=== PATIENT | female | born 1975 | race Caucasian/White ===

== ENCOUNTER 2017-09-25 16:26 | Emergency (ER) | payer SELFPAY ==
[2017-09-25 16:48] VITALS: BP 113/75
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
--- NOTE | 2017-09-25 18:36 | CT ---
CT cervical spine Technique: Multiple axial sections were obtained from above C1 inferiorly to the bottom of C7. Reconstructed sagittal and coronal images were reviewed. Findings: Several air cysts are seen within the C4 and C5 vertebral bodies which are incidental. Very slight calcification is seen within the anterior annulus at C5-6 and C6-7 which is incidental. Very slight scattered degenerative apophyseal change is seen. Vertebral body heights and disc spaces are preserved. Mastoid sinuses and middle ear cavities that are seen appear clear. Posterior skull base is intact. Vertebral bodies and posterior arches are intact with no fracture seen. Small amount of epidural air is seen posterior to C3 compatible with annular rupture from vacuum disc phenomena at C2-3. No bony central or bony neural foraminal stenosis is seen. No abnormal subluxation is seen on the reconstructed sagittal images. Impression: 1. Slight degenerative change. 2. No acute fracture or abnormal subluxation is seen. Diagnostic code #2
--- NOTE | 2017-09-25 18:38 | CT ---
Head CT Technique: Multiple axial sections through the brain were obtained. Intravenous contrast was not utilized. Comparison: No previous intracranial imaging. Findings: Soft tissue fullness is seen within the foramen magnum suspicious for Arnold-Chiari 1 malformation. Ventricles along with basal cisterns and sulci over the convexities are within normal limits. Slightly prominent cisterna magna is seen which is a normal variant. No abnormal parenchymal densities are seen. No evidence of intracranial hemorrhage. No midline shift or mass effect is seen. Bone window settings were reviewed which shows the visualized sinuses to appear clear. No acute calvarial abnormality is seen. Impression: 1. Possible Arnold-Chiari 1 malformation. MRI would be needed to confirm if clinically needed. 2. Incidental prominent cisterna magna as a normal variant. 3. No acute intracranial abnormality is identified. Diagnostic code #2
== END 2017-09-25 20:00 | disposition home or self-care (01) ==
LOC: JD.ED 16:26
DX: S16.1XXA Strain of muscle, fascia and tendon at neck level, initial encounter (principal); S09.90XA Unspecified injury of head, initial encounter; F17.210 Nicotine dependence, cigarettes, uncomplicated; Z91.030 Bee allergy status; W22.8XXA Striking against or struck by other objects, initial encounter
CPT/HCPCS: 70450; 70450-26; 72125; 72125-26; 99283; 99284-25

== ENCOUNTER 2018-12-01 19:07 | Emergency (ER) | payer SELFPAY ==
--- NOTE | 2018-12-01 20:03 | EDM.PDOC ---
ED HPI GENERAL MEDICAL PROBLEM - General Chief Complaint: Cardiovascular Problem Stated Complaint: RAPID HEART BEAT CHEST PAIN Time Seen by Provider: 12/01/18 19:41 Source of Information: Reports: Patient, RN Notes Reviewed History Limitations: Reports: No Limitations - History of Present Illness INITIAL COMMENTS - FREE TEXT/NARRATIVE: The patient states that she woke up this morning around 10:00 feeling well, but a few minutes later, developed the sensation that her heart was racing. She states that she has experienced symptoms of tachycardia, typically about 3 times a month, but worse in the summer, since about 1995. Prior workups have revealed only "tachycardia". She states that she was previously on Cardizem, but didn't like the side effects, therefore she discontinued it. She is not currently on any medication for it. She states that she went back to bed, which usually takes care of the problem, but when she woke after a nap, the tachycardia was still present. She states that it persisted all day, until around 16:30 or 17:00, then resolved, but it restarted again around 17:50. It again resolved en route to the ED. When the patient has the tachycardia, she also feels lightheaded, hot, with decreased vision, dyspnea, nausea sometimes, tingling of her hands and fingers, neck tightness with difficulty swallowing, and the sensation that she is walking on rubber legs. She felt all of those symptoms today, along with central chest tightness, which she does not usually feel. Now here in the ED, she feels back to normal, with the exception of the continued chest tightness. It is noted, however, that her oxygen saturation is 100% on room air. The patient states that she does not drink any caffeinated beverages or energy drinks. The patient's PCP is Dr. Jaziel Mcarthur. Sternum Pain Score (Numeric/FACES): 6 - Related Data Allergies Allergy/AdvReac Type Severity Reaction Status Date / Time beeswax Allergy Airway Verified 12/01/18 19:13 Tightness Home Meds: Home Meds . 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 Neurological History: Reports: Seizure (none since mid-) - Past Surgical History HEENT Surgical History: Reports: Oral Surgery (wisdom teeth extraction) Female Surgical History: Reports: Section (x 1), D&C (x 1) Social & Family History - Tobacco Use Smoking Status *Q: Current Every Day Smoker Years of Tobacco use: 17 Packs/Tins Daily: 0.5 Packs/Tins Daily Comment: Down from 1 ppd - Alcohol Use Alcohol Use History: Yes Alcohol Use Frequency: Socially (occasionally to excess) - Recreational Drug Use Recreational Drug Use: Yes Drug Use in Last 12 Months: Yes Recreational Drug Type: Reports: Marijuana/Hashish (last smoked 2018), Methamphetamine (last smoked 2017) - Living Situation & Occupation Living situation: Reports: , with Family Occupation: Employed ([employer]) ED ROS GENERAL - Review of Systems Review Of Systems: ROS reveals no pertinent complaints other than HPI. ED EXAM, GENERAL - Physical Exam Exam: See Below Exam Limited By: No Limitations General Appearance: Alert, WD/WN, No Apparent Distress Eye Exam: Bilateral Eye: EOMI, Normal Inspection Ears: Normal External Exam, Hearing Grossly Normal Nose: Normal Inspection Throat/Mouth: Normal Inspection, Normal Lips, Normal Voice, No Airway Compromise Head: Atraumatic, Normocephalic Neck: Normal Inspection, Full Range of Motion Respiratory/Chest: No Respiratory Distress, Lungs Clear, Normal Breath Sounds, No Accessory Muscle Use. No: Crackles, Rhonchi, Wheezing Cardiovascular: Normal Peripheral Pulses, Regular Rate, Rhythm, No Edema, No Gallop, No JVD, No Murmur, No Rub Peripheral Pulses: 4+: Radial (L), Radial (R) GI/Abdominal: Normal Bowel Sounds, Soft, Non-Tender, No Organomegaly, No Distention, No Abnormal Bruit, No Mass (Female) Exam: Deferred Rectal (Female) Exam: Deferred Back Exam: Normal Inspection, Full Range of Motion, NT Extremities: Normal Inspection, Normal Range of Motion, No Pedal Edema, Normal Capillary Refill Neurological: Alert, Oriented, Normal Cognition, No Motor/Sensory Deficits Psychiatric: Normal Affect Skin Exam: Warm, Dry, Intact, Normal Color, No Rash EKG INTERPRETATION EKG Date: 12/01/18 Time: 19:14 Rhythm: NSR Rate (Beats/Min): 91 [place]: Normal (Borderline RAD) P-Wave: Enlarged (+MONIK, ? LAE?. P-wave inversion in V1, V2) QRS: Normal (? early transition) ST-T: Normal QT: Normal Comparison: No Change (11/17/2016) Course - Vital Signs Last Recorded V/S: Last Vital Signs Temp 36.5 C 12/01/18 19:13 Pulse 90 12/01/18 22:42 Resp 15 12/01/18 19:13 BP 122/81 12/01/18 22:42 Pulse Ox 100 12/01/18 19:13 Orthostatic Blood Pressure [ 105/84 Standing] Orthostatic Blood Pressure [ 116/84 Sitting] Orthostatic Blood Pressure [ 107/81 Supine] - Orders/Labs/Meds Orders: Active Orders 24 hr Category Date Time Status EKG Documentation Completion [RC] STAT Care 12/01/18 20:00 Active Orthostatic Vital Signs [RC] STAT Care 12/01/18 20:00 Active Chest 2V [CR] Stat Exams 12/01/18 20:00 Taken DRUG SCREEN, URINE [URCHEM] Stat Lab 12/01/18 20:01 Ordered HCG QUALITATIVE,URINE [URCHEM] Stat Lab 12/01/18 20:00 Ordered UA W/MICROSCOPIC [URIN] Stat Lab 12/01/18 20:00 Ordered Labs: Laboratory Tests 12/01/18 12/01/18 12/01/18 Range/Units 20:05 21:10 21:10 WBC 12.03 H (3.98-10.04) K/mm3 RBC 4.49 (3.98-5.22) M/mm3 Hgb 13.2 (11.2-15.7) gm/L Hct 38.8 (34.1-44.9) % MCV 86.4 (79.4-94.8) fl MCH 29.4 (25.6-32.2) pg MCHC 34.0 (32.2-35.5) g/dl RDW Std Deviation 39.8 (36.4-46.3) fL Plt Count 236 (182-369) K/mm3 MPV 8.6 L (9.4-12.3) fl Neutrophils % (Manual) 80 H (40-60) % Band Neutrophils % 0 (0-10) % Lymphocytes % (Manual) 14 L (20-40) % Atypical Lymphs % 0 % Monocytes % (Manual) 5 (2-10) % Eosinophils % (Manual) 1 (0.7-5.8) % Basophils % (Manual) 0 L (0.1-1.2) Platelet Estimate Adequate Plt Morphology Comment Normal RBC Morph Comment Normal D-Dimer, Quantitative 0.44 (0.19-0.50) mg/L Puncture Site Rt radial ABG pH 7.40 (7.35-7.45) ABG pCO2 37.1 (35.0-45.0) mmHg ABG pO2 80.0 (80.0-100.0) mmHg ABG HCO3 22.5 (22.0-26.0) meq/L ABG O2 Saturation 96.7 (96.0-97.0) % ABG Base Excess -1.4 (-2-2.0) Tee Test Positive A-a Gradient 8 mmHg O2 Delivery Device Room air FiO2 21.00 (21.00-100.00) % Sodium (136-145) mEq/L Potassium (3.5-5.1) mEq/L Chloride (98-107) mEq/L Carbon Dioxide (21-32) mEq/L Anion Gap (5-15) BUN (7-18) mg/dL Creatinine (0.55-1.02) mg/dL Est Cr Clr Drug Dosing mL/min Estimated GFR (MDRD) (>60) mL/min BUN/Creatinine Ratio (14-18) Glucose (74-106) mg/dL Calcium (8.5-10.1) mg/dL Magnesium (1.8-2.4) mg/dl Total Bilirubin (0.2-1.0) mg/dL AST (15-37) U/L ALT (14-59) U/L Alkaline Phosphatase (46-116) U/L Troponin I (0.00-0.056) ng/mL Total Protein (6.4-8.2) g/dl Albumin (3.4-5.0) g/dl Globulin gm/dL Albumin/Globulin Ratio (1-2) TSH 3rd Generation (0.358-3.74) uIU/mL 12/01/18 Range/Units 21:10 WBC (3.98-10.04) K/mm3 RBC (3.98-5.22) M/mm3 Hgb (11.2-15.7) gm/L Hct (34.1-44.9) % MCV (79.4-94.8) fl MCH (25.6-32.2) pg MCHC (32.2-35.5) g/dl RDW Std Deviation (36.4-46.3) fL Plt Count (182-369) K/mm3 MPV (9.4-12.3) fl Neutrophils % (Manual) (40-60) % Band Neutrophils % (0-10) % Lymphocytes % (Manual) (20-40) % Atypical Lymphs % % Monocytes % (Manual) (2-10) % Eosinophils % (Manual) (0.7-5.8) % Basophils % (Manual) (0.1-1.2) Platelet Estimate Plt Morphology Comment RBC Morph Comment D-Dimer, Quantitative (0.19-0.50) mg/L Puncture Site ABG pH (7.35-7.45) ABG pCO2 (35.0-45.0) mmHg ABG pO2 (80.0-100.0) mmHg ABG HCO3 (22.0-26.0) meq/L ABG O2 Saturation (96.0-97.0) % ABG Base Excess (-2-2.0) Tee Test A-a Gradient mmHg O2 Delivery Device FiO2 (21.00-100.00) % Sodium 139 (136-145) mEq/L Potassium 3.9 (3.5-5.1) mEq/L Chloride 104 (98-107) mEq/L Carbon Dioxide 27 (21-32) mEq/L Anion Gap 11.9 (5-15) BUN 14 (7-18) mg/dL Creatinine 0.8 (0.55-1.02) mg/dL Est Cr Clr Drug Dosing 76.31 mL/min Estimated GFR (MDRD) > 60 (>60) mL/min BUN/Creatinine Ratio 17.5 (14-18) Glucose 78 (74-106) mg/dL Calcium 8.5 (8.5-10.1) mg/dL Magnesium 1.6 L (1.8-2.4) mg/dl Total Bilirubin 1.1 H (0.2-1.0) mg/dL AST 30 (15-37) U/L ALT 24 (14-59) U/L Alkaline Phosphatase 69 (46-116) U/L Troponin I 0.775 H* (0.00-0.056) ng/mL Total Protein 6.0 L (6.4-8.2) g/dl Albumin 3.0 L (3.4-5.0) g/dl Globulin 3.0 gm/dL Albumin/Globulin Ratio 1.0 (1-2) TSH 3rd Generation 1.640 (0.358-3.74) uIU/mL Meds: Medications Discontinued Medications Generic Name Dose Route Start Last Admin Trade Name Shari PRN Reason Stop Dose Admin Aspirin 324 mg 12/01/18 22:02 12/01/18 22:18 Aspirin PO 12/01/18 22:03 324 mg ONETIME STA Administration Magnesium Sulfate 2 gm/ Premix 50 mls @ 50 mls/hr 12/01/18 22:03 12/01/18 22: 42 IV 12/01/18 23:02 50 mls/hr ONETIME ONE Administration Metoprolol Tartrate 5 mg 12/01/18 22:02 12/01/18 22:42 Lopressor IVPUSH 12/01/18 22:03 5 mg ONETIME ONE Administration Simvastatin 80 mg 12/01/18 22:03 12/01/18 22:18 Zocor PO 12/01/18 22:04 80 mg ONETIME STA Administration - Re-Assessments/Exams Free Text/Narrative Re-Assessment/Exam: 12/01/18 20:03 By history, many of the patient's symptoms could be due to hyperventilation syndrome. This is buttressed by the fact that her oxygen saturation is 100% on room air. I have ordered a workup to evaluate. 12/01/18 21:16 2-view chest radiograph appears to be grossly normal. The cardiac silhouette is within normal limits. No pulmonary vascular congestion. No pleural effusions. No focal infiltrate. No pneumothorax. Formal read per the Radiologist pending. 12/01/18 21:50 Notified by [facility] PERE[facility] that the patient's troponin has returned elevated at 0.775. Her troponin was undetectably low on 11/17/2016, and review of the medical records from that date indicate that she was being seen for palpitations at that time, as well. We do not yet have the patient's CMP/renal function. 12/01/18 21:56 The patient is not orthostatic. The patient's CMP is normal, with no renal dysfunction. Her magnesium level is mildly depressed at 1.6. The patient reported to [facility] PEREZ that she was able to urinate, but then spilled it. 12/01/18 22:04 I have ordered 324 mg of aspirin, 5 mg of IV metoprolol, 80 mg of simvastatin, and a 2 g Mg-rider. I will need to discuss the case with a Tile Layer Helper before starting clopidogrel or heparin. 12/01/18 22:09 The above situation was discussed with the patient. I would like to discuss the case with a T[facility]per, in anticipation of transferring the patient to [place]. The patient does not have a preference of [facility] versus [facility]. 12/01/18 22:33 Case discussed with Gem at [facility] at 22:13. Case then discussed with Dr. Garza, T[facility] Helper on-call at [facility], at 22:20. He agreed that the patient should be transferred to their facility for further evaluation. He did not recommend any other medications than what I have already ordered. Case then discussed with Dr. Campbell, Hospitalist at [facility], at 22: 31. She accepted the patient for placement into observation at their facility. The patient will go by ground ambulance. 12/01/18 22:40 I have asked that the chest x-ray images be pushed to [facility]. Departure - Departure Time of Disposition: 22:33 Disposition: DC/Tfer to Acute Hospital 02 Reason for Transfer *Q: Other Condition: Fair Clinical Impression: Rapid palpitations, Elevated troponin, Hypomagnesemia Referrals: Jaziel Mcarthur MD [Primary Care Provider] - Forms: ED Department Discharge - My Orders Last 24 Hours: My Active Orders 12/01/18 20:00 EKG Documentation Completion [RC] STAT Orthostatic Vital Signs [RC] STAT Chest 2V [CR] Stat HCG QUALITATIVE,URINE [URCHEM] Stat UA W/MICROSCOPIC [URIN] Stat 12/01/18 20:01 DRUG SCREEN, URINE [URCHEM] Stat - Assessment/Plan Last 24 Hours: My Active Orders 12/01/18 20:00 EKG Documentation Completion [RC] STAT Orthostatic Vital Signs [RC] STAT Chest 2V [CR] Stat HCG QUALITATIVE,URINE [URCHEM] Stat UA W/MICROSCOPIC [URIN] Stat 12/01/18 20:01 DRUG SCREEN, URINE [URCHEM] Stat
[2018-12-01] MEDS ORDERED: Metoprolol Tartrate 5 MG/5 ML SDV IVPUSH ONE (22:02)
[2018-12-01] MEDS ORDERED: Aspirin 81 MG Tab.Chew PO STA (22:02)
[2018-12-01] MEDS ORDERED: Simvastatin 40 MG Tab PO STA (22:03)
[2018-12-01] MEDS ORDERED: Magnesium Sulfate/Water 2 GM in Premix Bag 1 BAG IV ONE (22:03)
[2018-12-01 22:43] VITALS: BP 122/81
--- NOTE | 2018-12-02 18:27 | CR ---
Chest: Two views of the chest were obtained. Comparison: Previous chest x-ray of 11/17/16. Heart size and mediastinum are normal. Lungs are clear. Bony structures are unremarkable. Impression: 1. Nothing acute is seen on two-view chest x-ray. Diagnostic code #1
== END 2018-12-01 23:55 ==
LOC: JD.ED 19:07
DX: R00.2 Palpitations (principal); E83.42 Hypomagnesemia; R09.89 Other specified symptoms and signs involving the circulatory and respiratory systems; F17.210 Nicotine dependence, cigarettes, uncomplicated; Z91.030 Bee allergy status
CPT/HCPCS: 36415; 36600; 71046; 80053; 82803; 83735; 84443; 84484; 85007; 85027; 85379; 93005; 96365; 96375; 99285; A9270; J3475; J3490

== ENCOUNTER 2021-09-27 09:39 | Emergency (ER) | payer BC ==
[2021-09-27 10:00] VITALS: BP 110/78; PULSE 76
--- NOTE | 2021-09-27 11:17 | EDM.PDOC ---
ED HPI GENERAL MEDICAL PROBLEM - General Chief Complaint: Head Injury Stated Complaint: HEAD INJURY Time Seen by Provider: 09/27/21 10:57 Source of Information: Reports: Patient, RN Notes Reviewed, Significant Other History Limitations: Reports: No Limitations - History of Present Illness INITIAL COMMENTS - FREE TEXT/NARRATIVE: Patient is a 46-year-old female who presents to the ER for her seizure/head injury. States that she has a history of epileptic seizures, but she has not had one for about 20 years. States that she used to be on Depakote but again was taken off her medications roughly 20 years ago. States that she did tolerate Depakote well when she was on this. She has not followed up with neurology in some time. States that she thinks that she had a seizure at around 11 PM on Monday night. This was witnessed a little bit by her . He states he was downstairs, and he heard some "flopping in her room" and he went up to check on her, and that he found her on the floor having seizure-like movements. He notes that since the seizure, that she has been somewhat confused, not acting like herself. States that she is asking [id number] questions that do not make a lot of sense, and that her gait is terribly wobbly. No fevers, some slight chills, may be some lethargy, but no cough, or shortness of breath or any sort of nausea/vomiting/diarrhea. She is not complaining of a headache or any sort of blurred vision or double vision. Primary care provider is Dr. Orr. Headache Pain Score (Numeric/FACES): 5 - Related Data Allergies Allergy/AdvReac Type Severity Reaction Status Date / Time beeswax Allergy Airway Verified 09/27/21 10:00 Tightness Home Meds: Home Meds EPINEPHrine [Epipen] 0.3 mg IM ASDIRECTED PRN #1 pen 06/14/19 [Rx] predniSONE [Prednisone] 40 mg PO DAILY #10 tablet 06/14/19 [Rx] Past Medical History Cardiovascular History: Reports: Other (See Below) Other Cardiovascular History: tachycardia ADVANCED PRACTICE RN History: Reports: , Spontaneous , Other (See Below) Other [facility]ED PRACTICE RN History: c section Neurological History: Reports: Seizure (hx/o epilepsy) - Past Surgical History HEENT Surgical History: Reports: Oral Surgery Female Surgical History: Reports: Section, D&C Social & Family History - Family History Family Medical History: No Pertinent Family History - Tobacco Use Tobacco Use Status *Q: Never Tobacco User - Living Situation & Occupation Living situation: Reports: , with Family Occupation: Employed ([employer]) ED ROS GENERAL - Review of Systems Review Of Systems: Comprehensive ROS is negative, except as noted in HPI. ED EXAM, HEAD INJURY - Physical Exam Exam: See Below Exam Limited By: No Limitations General Appearance: Alert, WD/WN, No Apparent Distress Head: Atraumatic, Normocephalic Nexus Criteria: No: Posterior, Midline Cervical Tenderness, Evidence of Intoxication, Altered Level of Consciousness, Focal Neurological Deficit, Painful Distraction Injuries Eyes: Bilateral Eye: EOMI, Normal Inspection, PERRL Ears: Normal External Exam, Normal Canal, Hearing Grossly Normal, Normal TMs Neck: Non-Tender, Full Range of Motion, Normal Alignment, Normal Inspection Respiratory: No Respiratory Distress, Lungs Clear, Normal Breath Sounds, No Accessory Muscle Use, Chest Non-Tender Cardiovascular: Normal Peripheral Pulses, Regular Rate, Rhythm, No Edema GI/Abdominal Exam: Normal Bowel Sounds, Soft, Non-Tender, No Distention, No Mass Extremities: Normal Inspection, Normal Capillary Refill Neurologic: slot floor attendant II-XII nml As Tested, No Motor/Sensory Deficits, Alert, Normal Mood/Affect, Oriented x 3 Skin: Normal Color, Warm/Dry - [place] Coma Score Best Eye Response ([place]): (4) Open Spontaneously Best Verbal Response (John): (5) Oriented Best Motor Response (John): (6) Obeys Commands John Total: 15 Course - Vital Signs Last Recorded V/S: Last Vital Signs Temp 97.8 F 09/27/21 09:57 Pulse 76 09/27/21 09:57 Resp 18 09/27/21 09:57 BP 110/78 09/27/21 09:57 Pulse Ox 98 09/27/21 09:57 - Orders/Labs/Meds Labs: Laboratory Tests 09/27/21 09/27/21 Range/Units 11:20 11:20 WBC 7.43 (3.98-10.04) K/mm3 RBC 4.65 (3.98-5.22) M/mm3 Hgb 14.7 D (11.2-15.7) gm/dl Hct 43.8 (34.1-44.9) % MCV 94.2 D (79.4-94.8) fl MCH 31.6 (25.6-32.2) pg MCHC 33.6 (32.2-35.5) g/dl RDW Std Deviation 42.9 (36.4-46.3) fL Plt Count 241 (182-369) K/mm3 MPV 8.5 L (9.4-12.3) fl Neut % (Auto) 68.7 (34.0-71.1) % Lymph % (Auto) 19.5 (19.3-51.7) % [place] % (Auto) 8.9 (4.7-12.5) % Eos % (Auto) 2.3 (0.7-5.8) Baso % (Auto) 0.5 (0.1-1.2) % Neut # (Auto) 5.10 (1.56-6.13) K/mm3 Lymph # (Auto) 1.45 (1.18-3.74) K/mm3 [place] # (Auto) 0.66 H (0.24-0.36) K/mm3 Eos # (Auto) 0.17 (0.04-0.36) K/mm3 Baso # (Auto) 0.04 (0.01-0.08) K/mm3 Sodium 139 (136-145) mEq/L Potassium 4.4 (3.5-5.1) mEq/L Chloride 102 (98-107) mEq/L Carbon Dioxide 29 (21-32) mEq/L Anion Gap 12.4 (5-15) BUN 16 (7-18) mg/dL Creatinine 0.8 (0.55-1.02) mg/dL Est Cr Clr Drug Dosing TNP Estimated GFR (MDRD) > 60 (>60) mL/min BUN/Creatinine Ratio 20.0 H (14-18) Glucose 110 H (70-99) mg/dL Calcium 8.3 L (8.5-10.1) mg/dL Total Bilirubin 1.3 H (0.2-1.0) mg/dL AST 20 (15-37) U/L ALT 16 (14-59) U/L Alkaline Phosphatase 73 (46-116) U/L Total Protein 6.5 (6.4-8.2) g/dl Albumin 3.2 L (3.4-5.0) g/dl Globulin 3.3 gm/dL Albumin/Globulin Ratio 1.0 (1-2) - Re-Assessments/Exams Free Text/Narrative Re-Assessment/Exam: 09/27/21 11:18 Patient presents to the ER for the evaluation of her seizure/head injury. At this time I do believe that CT is warranted, we will go ahead and get a CBC and CMP for initial management as well. 09/27/21 12:37 Labs are all unremarkable, I did talk with the neurologist at [facility] in [place], regarding the CT findings. Patient does have an element of an ArnoldChiari I malformation. Finding appears to be stable from her prior head CT but MRI would be needed to confirm severity of this finding. No other acute intracranial abnormality seen on the head CT. Dr. Fisher, neurologist at [facility] did state if the patient is stable, that an MRI could be ordered for outpatient management. I will have her follow-up with Dr. Orr at this time so she can get an appointment with neurology for ongoing management. Departure - Departure Time of Disposition: 12:38 Disposition: Home, Self-Care 01 Condition: Good Clinical Impression: Seizure, Gait abnormality, Arnold-Chiari malformation, type I, Concussion injury of brain - Discharge Information *PRESCRIPTION DRUG MONITORING PROGRAM REVIEWED*: No *COPY OF PRESCRIPTION DRUG MONITORING REPORT IN PATIENT MARIANNE: No Instructions: Seizure, Adult, [id number], Concussion, Adult, [id number] Referrals: Jaziel Mcarthur MD [Primary Care Provider] - 1 Week (f/u with neurosurgery regarding CT results) Forms: ED Department Discharge Additional Instructions: You were evaluated in the ER today for your head injury after your seizure on Monday. Head CT was performed and demonstrates no sign of a bleed, or other acute findings. There was a ArnoldChiari I malformation that appear to be stable from a prior CT. But MRI is recommended for further evaluation, but this can be done on an outpatient basis. A neurologist was consulted on your case today, and he does recommend that you follow-up with your regular care provider for possible neurosurgery consult regarding the head CT findings at today's visit. Please call Dr. Orr's office today, to obtain an appointment hopefully sometime this week so we can discuss the findings with him in outpatient order has been provided on your behalf for a brain MRI for further investigation of your stable Arnold-Chiari malformation. You will need to follow-up with Dr. Orr for results of this, and for further neuro follow-up as well. Do not hesitate to return to the ER at any time if symptoms change or worsen. Sepsis Event Note (ED) - Evaluation Sepsis Screening Result: No Definite Risk - Focused Exam Vital Signs: Vital Signs Temp Pulse Resp BP Pulse Ox 09/27/21 09:57 97.8 F 76 18 110/78 98
--- NOTE | 2021-09-27 11:30 | CT ---
Head CT Technique: Multiple axial sections through the brain were obtained. Intravenous contrast was not utilized. Reconstructed coronal and sagittal images were obtained. Comparison: Previous head CT study of 09/25/17. Findings: Cerebellar tonsils descend below the foramen magnum but were not completely included on this exam. Findings are compatible with some element of Arnold-Chiari 1 malformation. Slightly prominent cisterna magna is noted. Both of these findings are felt to be fairly similar to prior exam. Ventricles along with basal cisterns and sulci over the convexities are within normal limits. No abnormal parenchymal densities are seen. No evidence of intracranial hemorrhage is seen. No midline shift or mass-effect is seen. Bone window settings were reviewed. Visualized mastoid sinuses and paranasal sinuses are clear. No acute calvarial abnormality is appreciated. Impression: 1. Element of Arnold-Chiari 1 malformation. MRI would be needed to confirm severity of this finding. This finding appears to be stable from prior head CT. 2. Prominent cisterna magna which is also a stable finding. 3. No acute intracranial abnormality is seen on noncontrast head CT study. Diagnostic code #2
== END 2021-09-27 13:07 | disposition home or self-care (01) ==
LOC: JD.ED 09:39
DX: S06.0X9A Concussion with loss of consciousness of unspecified duration, initial encounter (principal); G40.909 Epilepsy, unspecified, not intractable, without status epilepticus; G93.5 Compression of brain; R26.9 Unspecified abnormalities of gait and mobility; Z91.030 Bee allergy status; W22.8XXA Striking against or struck by other objects, initial encounter
CPT/HCPCS: 36415; 70450; 70450-26; 80053; 85025; 99284-25

== ENCOUNTER 2022-06-24 11:53 | Emergency (ER) | payer BC ==
[2022-06-24 12:33] VITALS: BP 151/92; PULSE 66
== END 2022-06-24 15:29 | disposition home or self-care (01) ==
LOC: JD.ED 11:53
DX: S09.90XA Unspecified injury of head, initial encounter (principal); F17.210 Nicotine dependence, cigarettes, uncomplicated; Z91.030 Bee allergy status; W22.09XA Striking against other stationary object, initial encounter; Y92.000 Kitchen of unspecified non-institutional (private) residence as the place of occurrence of the external cause
CPT/HCPCS: 70450; 70450-26; 99283

== ENCOUNTER 2023-04-25 10:41 | Emergency (ER) | payer BC ==
[2023-04-25] MEDS ORDERED: Sodium Chloride 0.9% 10 ML Syringe FLUSH PRN (11:09)
[2023-04-25] MEDS ORDERED: LORazepam 2 MG/ML SDV IVPUSH ONE (11:29)
[2023-04-25 11:32] LABS: HEMATOCRIT 44.7 % (34.1-44.9); HEMOGLOBIN 15.4 gm/dl (11.2-15.7); MEAN CORPUSCULAR HEMOGLOBIN 33.7 pg (25.6-32.2); MEAN CORPUSCULAR HGB CONC 34.5 g/dl (32.2-35.5); MEAN PLATELET VOLUME 8.6 fl (9.4-12.3); PLATELET COUNT,PLT 193 K/mm3 (182-369); RED BLOOD CELL COUNT 4.57 M/mm3 (3.98-5.22); WHITE BLOOD CELL COUNT,WBC 6.08 K/mm3 (3.98-10.04)
[2023-04-25 11:42] LABS: MEAN CORPUSCULAR VOLUME 97.8 fl (79.4-94.8)
[2023-04-25 11:57] LABS: BAND PERCENT MAN 0 % (0-10); BASOPHILS PERCENT MAN 1 (0.1-1.2); EOSINOPHILS PERCENT MAN 1 % (0.7-5.8); LYMPHOCYTES % ATYPICAL MANUAL 0 %; LYMPHOCYTES PERCENT MAN 15 % (20-40); MONOCYTES PERCENT MAN 8 % (2-10)
[2023-04-25 11:58] LABS: PLATELET COUNT ESTIMATE ADEQUATE
[2023-04-25 12:06] LABS: ALBUMIN 3.5 g/dl (3.4-5.0); ANION GAP 12.1 (5-15); BILIRUBIN TOTAL 1.5 mg/dL (0.2-1.0); BUN/CREATININE RATIO 14.3 (14-18); CALCIUM 8.7 mg/dL (8.5-10.1); CREATININE 0.7 mg/dL (0.55-1.02); EST CRCL DRUG DOSING (CG) 76.3 mL/min; MAGNESIUM 1.4 mg/dL (1.8-2.4); POTASSIUM,K 4.1 mEq/L (3.5-5.1); PROTEIN TOTAL,TP 7.2 g/dl (6.4-8.2); TSH 1.3 uIU/mL (0.358-3.74)
[2023-04-25] MEDS ORDERED: Magnesium Sulfate/Water 2 GM in Premix Bag 1 BAG IV ONE (13:00)
[2023-04-25] MEDS ORDERED: LEVETIRACETAM IV ONE ×2 (13:39→14:30)
[2023-04-25] MEDS ORDERED: SODIUM CHLORIDE 0.9% IV ONE ×2 (13:39→14:30)
[2023-04-25 13:45] LABS: BARBITURATE SCREEN,URINE NEGATIVE (CUTOFF=200); BENZODIAZEPINES SCREEN,URINE PRESUMPTIVE POSITIVE (CUTOFF=150); BUPRENORPHINE SCREEN,URINE NEGATIVE (CUTOFF=10); METHADONE SCREEN, URINE NEGATIVE (CUTOFF=200); METHAMPHETAMINES SCREEN, URINE NEGATIVE (CUTOFF=500); OXYCODONE SCREEN,URINE NEGATIVE (CUT0FF=100); PROPOXYPHENE SCREEN,URINE NEGATIVE (CUTOFF=300); THC SCREEN,URINE 20 NG/ML PRESUMPTIVE POSITIVE (CUTOFF=50)
[2023-04-25 13:51] LABS: AMPHETAMINES SCREEN, URINE NEGATIVE (CUTOFF=500)
[2023-04-25 16:41] VITALS: BP 128/91; PULSE 95
== END 2023-04-25 15:55 | disposition home or self-care (01) ==
LOC: JD.ED 10:41
DX: R56.9 Unspecified convulsions (principal); Z91.048 Other nonmedicinal substance allergy status; Z72.0 Tobacco use
CPT/HCPCS: 36415; 70450; 80053; 80306; 80307; 83735; 84443; 85007; 85027; 96365; 96366; 96368; 96375; 99284; J1953; J2060; J3475; J3490